=== PATIENT | female | born 1980 | race Two or more races ===

== ENCOUNTER 2016-10-10 07:01 | Day surgery (SDC) | payer OTHER ==
[2016-10-09 11:31] LABS: Urine RBC None Seen /hpf (0 - 4)
[2016-10-09 11:38] LABS: Basophils # (auto) 0 uL; Basophils % (auto) 0.4 % (0.0-2.0); Eosinophils # (auto) 0.1 uL; Eosinophils % (auto) 2.4 % (0.0-7.0); Hematocrit 43.3 % (36.0-46.0); Hemoglobin 14.3 g/dL (12.2-16.2); Lymphocytes # (auto) 1.3 uL; Lymphocytes % (auto) 44.4 % (10.0-50.0); Mean Corpuscular Hemoglobin 31.3 pg (28.0-32.0); Mean Corpuscular Volume 94.7 fL (80.0-100.0); Mean Platelet Volume 10.4 fL (7.4-10.4); Monocytes # (auto) 0.4 uL; Monocytes % (auto) 11.9 % (0.0-12.0); Neutrophils # (auto) 1.2 uL; Neutrophils % (auto) 40.9 % (37.0-80.0); Platelet Count (auto) 232 10^3/uL (140-450); Red Cell Distribution Width 13.8 % (11.6-16.0); SUSPECT VIEW TRANSMISSION
[2016-10-09 11:51] LABS: Urine Bilirubin Negative (Negative); Urine Blood Negative /uL (Negative); Urine Color Yellow (Yellow); Urine Glucose Normal (Normal); Urine Ketone Negative (Negative); Urine Nitrite Negative (Negative); Urine Squamous Epithelial Cell FEW /hpf (<5); Urine Urobilinogen Normal (Negative); Urine pH 6.5 (5.0-8.0)
[2016-10-09 11:53] LABS: INR 1.05 (0.9-1.15); Partial Thromboplastin Time 26.8 sec (22.64-33.71); Prothrombin Time 11.3 sec (9.37-12.3)
[2016-10-09 12:10] LABS: Albumin 4.1 g/dL (3.4-5.0); BUN/Creatinine Ratio 19.1; Bilirubin, Total 0.7 mg/dL (0.2-1.0); Calcium 9.3 mg/dL (8.5-10.1); Total Protein 7.9 g/dL (6.4-8.2)
[~2016-10-10] VITALS: Ht 162.6 cm; Wt 63.5 kg
[2016-10-10] MEDS ORDERED: ceFAZolin 1GM/50ML D5W 50 ML IV ONE (07:45)
[2016-10-10] MEDS ORDERED: MIDAZOLAM HCL 1MG/1ML-2 ML VIAL ONE (08:17)
[2016-10-10] MEDS ORDERED: fentaNYL CITRATE 100 MCG/2 ML VL ONE (08:17)
[2016-10-10] MEDS ORDERED: PROPOFOL 10 MG/ML 20 ML IV ONE (08:17)
[2016-10-10] MEDS ORDERED: BUPIVACAINE 0.75% INJ 10ML MPV SDV IJ ONE (08:25)
[2016-10-10] MEDS ORDERED: ONDANSETRON HCL 4 MG/2 ML VIAL IV ONE (09:15)
[2016-10-10] MEDS ORDERED: hydrALAZINE HCL 20 MG/ML VL IV PRN (09:15)
[2016-10-10] MEDS ORDERED: ePHEDrine SULFATE 50 MG/ML AMP IV PRN (09:15)
[2016-10-10 09:55] VITALS: BP 142/73
[2016-10-10] MEDS ORDERED: fentaNYL CITRATE 100 MCG/2 ML VL IV ONE (10:00)
== END 2016-10-10 09:55 | disposition home or self-care (01) ==
LOC: SUR 07:01
PROVIDERS: ATTEND Podiatrist Foot & Ankle Surgery
DX: M20.41 Other hammer toe(s) (acquired), right foot (principal); M21.611 Bunion of right foot
CPT/HCPCS: 28285; 28296; 36415; 73660; 76000; 80053; 81001; 84702; 85025; 85610; 85730; 88304; 88311; C1713; C1769; J0690; J2250; J2704; J3010; J3490; Q4137